=== PATIENT | female | born 1990 | race African-American/Black ===

== ENCOUNTER 2019-02-18 12:44 | Emergency (ER) | payer MEDICAID, OTHER ==
[~2019-02-18] VITALS: Ht 172.7 cm; Wt 68.0 kg
[2019-02-18 13:00] VITALS: BP 137/94
[2019-02-18] MEDS ORDERED: ACETAMINOPHEN 500 MG TAB PO ONE (14:30)
== END 2019-02-18 15:25 | disposition home or self-care (01) ==
LOC: ER 12:44 → EDBD 12:44 → ER 15:24
DX: S00.83XA Contusion of other part of head, initial encounter (principal); V49.59XA Passenger injured in collision with other motor vehicles in traffic accident, initial encounter; Y93.89 Activity, other specified; Y99.8 Other external cause status; Y92.89 Other specified places as the place of occurrence of the external cause